=== PATIENT | female | born 2000 | race Caucasian/White ===

== ENCOUNTER 2020-08-20 18:12 | Inpatient (IN) | payer MEDICAID ==
[~2020-08-20] VITALS: Ht 162.6 cm; Wt 52.2 kg
[2020-08-20] MEDS ORDERED: TRAZ-252 PO (19:29)
[2020-08-20] MEDS ORDERED: LEVO125 PO (19:29)
[2020-08-20] MEDS ORDERED: LEVE500T53 PO (19:29)
[2020-08-20] MEDS ORDERED: ZOLPIDEM TARTRATE 10 MG TABLET PO PRN (22:30)
[2020-08-20] MEDS ORDERED: HALOPERIDOL 5 MG TABLET PO PRN (22:30)
[2020-08-20] MEDS ORDERED: INFLUENZA VIRUS VACCINE QVS 2020-21 (6MO+)/PF 60 MCG/0.5 ML SYRINGE IM ONE (23:30)
[2020-08-21 00:02] VITALS: BP 121/68
[2020-08-21] MEDS: LORazepam 2 MG TABLET PO PRN ×2 (00:14→22:18)
[2020-08-21] MEDS ORDERED: MAGNESIUM HYDROXIDE SUSPENSION 30 ML UDCUP PO PRN (07:30)
[2020-08-21] MEDS ORDERED: GuaiFENesin/D-METHORPHAN [SUGAR-FREE] 200-20MG/10 ML SYRUP UDCUP PO PRN (07:30)
[2020-08-21] MEDS ORDERED: ACETAMINOPHEN 325 MG TABLET PO PRN (07:30)
[2020-08-21] MEDS ORDERED: DOCUSATE SODIUM 100 MG CAPSULE PO PRN (07:30)
[2020-08-21] MEDS ORDERED: CloNIDine HCL 0.1 MG TABLET PO PRN (07:30)
[2020-08-21] MEDS ORDERED: MAG HYDROX/AL HYDROX/SIMETH ES 30 ML SUSPENSION UDCUP PO PRN (07:30)
[2020-08-21] MEDS ORDERED: PETROLATUM,WHITE 28 GM JELLY TP PRN (07:30)
[2020-08-21] MEDS ORDERED: IBUPROFEN 400 MG TABLET PO PRN (07:30)
[2020-08-21] MEDS ORDERED: LOPERAMIDE HCL 2 MG CAPSULE PO PRN (07:30)
[2020-08-21] MEDS ORDERED: NICOTINE 14 MG/24 HOUR PATCH TD PRN (07:30)
[2020-08-21] MEDS ORDERED: ALBUTEROL SULFATE HFA 90 MCG/PUFF 8 GM INHALER IH PRN (07:30)
[2020-08-21 08:14] VITALS: BP 100/60
[2020-08-21] MEDS ORDERED: BACITRACIN 28 GM OINTMENT TP PRN (09:00)
[2020-08-21 16:35] VITALS: BP 105/66
[2020-08-22 00:38] VITALS: BP 108/63
[2020-08-22 08:19] LABS: BASOPHILS % (AUTO) 0.9 % (0.0-2.0); EOSINOPHILS % (AUTO) 1.3 % (1.0-6.0); HEMATOCRIT 41.3 % (36-46); HEMOGLOBIN 13.9 g/dL (12.0-16.0); LYMPHOCYTES # (AUTO) 2.7 K/uL (1.0-4.8); LYMPHOCYTES % (AUTO) 41.6 % (22.0-44.0); MEAN CORPUSCULAR HEMOGLOBIN 31.8 pg (26.0-34.0); MEAN CORPUSCULAR HGB CONC 33.7 G/dL (31.0-37.0); MEAN CORPUSCULAR VOLUME 94 fL (80-100); MONOCYTES # (AUTO) 0.8 K/uL (0.1-1.0); MONOCYTES % (AUTO) 11.8 % (2.0-9.0); NEUTROPHILS # (AUTO) 2.9 K/uL (1.8-7.7); NEUTROPHILS % (AUTO) 44.4 % (40.0-70.0); PLATELET COUNT (AUTO) 277 K/uL (150-450); RED BLOOD CELL COUNT(AUTO) 4.38 MIL/uL (4.00-5.20); RED CELL DISTRIBUTION WIDTH 12.2 % (11.5-14.5)
[2020-08-22 08:35] LABS: HEMOGLOBIN A1C 5.4 % (3.8-5.6)
[2020-08-22 08:45] VITALS: BP 108/66
[2020-08-22] MEDS: VENLAFAXINE HCL 75 MG ER CAPSULE PO SCH (08:49)
[2020-08-22 09:00] LABS: ALANINE AMINOTRANSFERASE 18 U/L (12-78); ALBUMIN 3.8 g/dL (3.4-5.0); ALKALINE PHOSPHATASE 60 U/L (46-116); ANION GAP 10 mmol/L (8-16); ASPARTATE AMINOTRANSFERASE 9 U/L (15-37); BILIRUBIN,TOTAL 0.9 mg/dL (0.1-1.0); CALCIUM, TOTAL 9.1 mg/dL (8.8-10.5); CARBON DIOXIDE 27 mmol/L (22-29); CHLORIDE 104 mmol/L (98-107); CHOL/HDL RATIO 3.2 (3.9-5.7); CHOLESTEROL 180 mg/dL (131-200); CREATININE 0.85 mg/dL (0.60-1.30); FREE T4 (FREE THYROXINE) 0.98 ng/dL (0.76-1.46); GLOMERULAR FILTR. RATE CALC > 60 mL/min (>60); GLUCOSE,RANDOM 87 mg/dL (70-110); HDL CHOLESTEROL 57 mg/dL (40-60); LDL CHOL (CALC.) 105 mg/dL (0-130); POTASSIUM 3.9 mmol/L (3.5-5.1); SODIUM SERUM 141 mmol/L (136-145); THYROID STIMULATING HORMONE 2.65 uIU/mL (0.36-3.74); TOTAL PROTEIN, SERUM 7.4 g/dL (6.4-8.2); TRIGLYCERIDES 90 mg/dL (15-150); UREA NITROGEN, BLOOD 17 mg/dL (7-18)
[2020-08-22] MEDS: LORazepam 2 MG TABLET PO PRN ×2 (13:43→19:18)
[2020-08-22] MEDS: LevETIRAcetam 500 MG TABLET PO SCH (16:02)
[2020-08-22 16:16] VITALS: BP 123/71
[2020-08-22] MEDS: ONDANSETRON HCL 4 MG TABLET PO PRN (16:16)
[2020-08-22] MEDS: TraZODone HCL 50 MG TABLET PO SCH (20:04)
[2020-08-23 05:44] VITALS: BP 104/60
[2020-08-23] MEDS: LEVOTHYROXINE SODIUM 125 MCG TABLET PO SCH (06:30)
[2020-08-23] MEDS: VENLAFAXINE HCL 75 MG ER CAPSULE PO SCH (08:07)
[2020-08-23] MEDS: LevETIRAcetam 500 MG TABLET PO SCH ×2 (08:07→16:50)
[2020-08-23 08:27] VITALS: BP 118/81
[2020-08-23] MEDS: ONDANSETRON HCL 4 MG TABLET PO PRN (11:06)
[2020-08-23] MEDS: LORazepam 2 MG TABLET PO PRN (13:19)
[2020-08-23 16:19] VITALS: BP 108/70
[2020-08-23] MEDS: TraZODone HCL 50 MG TABLET PO SCH (20:12)
[2020-08-24 04:40] VITALS: BP 108/64
[2020-08-24] MEDS: LEVOTHYROXINE SODIUM 125 MCG TABLET PO SCH (06:30)
[2020-08-24] MEDS: VENLAFAXINE HCL 75 MG ER CAPSULE PO SCH (08:05)
[2020-08-24] MEDS: LevETIRAcetam 500 MG TABLET PO SCH ×2 (08:06→16:55)
[2020-08-24 08:26] VITALS: BP 108/64
[2020-08-24 16:20] VITALS: BP 115/71
[2020-08-24] MEDS: ONDANSETRON HCL 4 MG TABLET PO PRN (17:14)
[2020-08-24] MEDS: TraZODone HCL 50 MG TABLET PO SCH (20:12)
[2020-08-25 04:13] VITALS: BP 114/74
[2020-08-25] MEDS: ONDANSETRON HCL 4 MG TABLET PO PRN (04:28)
[2020-08-25] MEDS: LEVOTHYROXINE SODIUM 125 MCG TABLET PO SCH (06:30)
[2020-08-25 07:40] LABS: COVID AG,FIA SOURCE NASOPHARYNGEAL
[2020-08-25 08:48] VITALS: BP 112/67
[2020-08-25] MEDS: LORazepam 2 MG TABLET PO PRN (09:04)
[2020-08-25] MEDS: VENLAFAXINE HCL 75 MG ER CAPSULE PO SCH (09:04)
[2020-08-25] MEDS: LevETIRAcetam 500 MG TABLET PO SCH (09:04)
[2020-08-25] MEDS ORDERED: VENL-67 PO (11:04)
== END 2020-08-25 12:30 | disposition home or self-care (01) | DRG 751 ==
LOC: B2S 22:30
PROVIDERS: ADMIT Psychiatry & Neurology Child & Adolescent Psychiatry; ATTEND Psychiatry & Neurology Child & Adolescent Psychiatry
DX: F33.2 Major depressive disorder, recurrent severe without psychotic features (principal); E03.9 Hypothyroidism, unspecified; Z20.822 Contact with and (suspected) exposure to COVID-19; F12.90 Cannabis use, unspecified, uncomplicated; G40.909 Epilepsy, unspecified, not intractable, without status epilepticus; R45.851 Suicidal ideations; F41.9 Anxiety disorder, unspecified; Z79.899 Other long term (current) drug therapy
CPT/HCPCS: 83036; 84439; 84443; 87426; Q0162